=== PATIENT | male | born 1965 ===

== ENCOUNTER 2016-10-27 13:30 | Emergency (ER) | payer SELFPAY ==
[2016-10-27 13:46] VITALS: BP 154/99
--- NOTE | 2016-10-27 14:49 | UC ---
Skin Complaint HPI - HPI Summary HPI Summary: Itchy rash all over body starting about 2 weeks ago. First noticed on legs, especially behind R knee. Denies new medications, food, or supplements. No hx of skin allergies or sensitivities. Denies fever, cough, weight loss, or recent illness. - History of Current Complaint Chief Complaint: UCRash Time Seen by Provider: 10/27/16 14:32 Stated Complaint: RASH Hx Obtained From: Patient Onset/Duration: Gradual Onset, Lasting Weeks Timing: Constant Onset Severity: Mild Current Severity: Mild Location: Generalized Character: Pruritus Aggravating: Nothing Alleviating: Nothing Associated Signs & Symptoms: Positive: Rash - Allergy/Home Medications Allergies/Adverse Reactions: Allergies Allergy/AdvReac Type Severity Reaction Status Date / Time No Known Allergies Allergy Verified 12/20/14 10:37 Home Medications: Home Medications Multiple Vitamins W/ Minerals [Multivitamin Adult] 1 chw PO 10/27/16 [History] Review of Systems Constitutional: Negative Skin: Rash Eyes: Negative ENT: Negative Respiratory: Negative Cardiovascular: Negative Gastrointestinal: Negative Genitourinary: Negative Motor: Negative Neurovascular: Negative Musculoskeletal: Negative Neurological: Negative Psychological: Negative All Other Systems Reviewed And Are Negative: Yes PMH/Surg Hx/FS Hx/Imm Hx Previously Healthy: Yes - Pt does not see a PCP Endocrine History Of: Denies: Diabetes, Thyroid Disease Cardiovascular History Of: Denies: Cardiac Disorders, Hypertension Respiratory History Of: Denies: COPD, Asthma GI/ History Of: Denies: Ulcer - Surgical History Surgical History: Yes Surgery Procedure, Year, and Place: R ORIF femur. L ankle ORIF - Family History Known Family History: Positive: Unknown - pt not sure - Social History Lives: With Family Alcohol Use: None Substance Use Type: Marijuana Substance Use Comment - Amount & Last Used: today 10/27/16, states no Smoking Status (MU): Never Smoked Tobacco Physical Exam Triage Information Reviewed: Yes Appearance: Well-Appearing, No Pain Distress, Obese Vital Signs: Initial Vital Signs Temp 97.5 F 10/27/16 13:38 Pulse 82 10/27/16 13:38 Resp 18 10/27/16 13:38 BP 154/99 10/27/16 13:38 Pulse Ox 97 10/27/16 13:38 Vital Signs Reviewed: Yes Eye Exam: Normal Eyes: Positive: Conjunctiva Clear ENT Exam: Normal ENT: Positive: Normal ENT inspection, Hearing grossly normal, Pharynx normal, TMs normal Dental Exam: Normal Neck exam: Normal Neck: Positive: Supple, Nontender, No Lymphadenopathy Respiratory Exam: Normal Respiratory: Positive: Chest non-tender, Lungs clear, Normal breath sounds, No respiratory distress, No accessory muscle use Cardiovascular Exam: Normal Cardiovascular: Positive: RRR, No Murmur Musculoskeletal Exam: Normal Neurological Exam: Normal Psychological Exam: Normal Skin Exam: Other - small irreg red bumps on legs, arms, hands, abd, back. Skin folds spared, lots of open excoriations (especially on BLE). Course/Dx - Diagnoses Provider Diagnoses: dermatitis Discharge - Discharge Plan Condition: Stable Disposition: HOME Prescriptions: hydrOXYzine HCL TAB* [Atarax TAB*] 50 mg PO TID PRN #15 tab PRN Reason: Itching predniSONE TAB* [Deltasone TAB*] 40 mg PO DAILY #10 tab Patient Education Materials: Dermatitis (ED) Referrals: [facility] [Outside] Additional Instructions: As we discussed, I do not know what is making you itchy and rashy. If your symptoms resolve after this medication, no further treatment is needed. However , if your symptoms persist or worsen, please see a primary care provider or return here for a recheck.
== END 2016-10-27 14:47 | disposition home or self-care (01) ==
LOC: UCEAST 13:30
DX: L30.9 Dermatitis, unspecified (principal); F12.90 Cannabis use, unspecified, uncomplicated
CPT/HCPCS: 99212; G0463

== ENCOUNTER 2016-11-10 13:13 | Emergency (ER) | payer SELFPAY ==
[2016-11-10 13:34] VITALS: BP 146/85
--- NOTE | 2016-11-10 14:04 | UC ---
Skin Complaint HPI - HPI Summary HPI Summary: Patient was seen for a rash on 10/27 was given 5 days of prednisone, it started to improve but rebounded and is worse, it is on both lower legs hands and on his trunk. - History of Current Complaint Chief Complaint: UCRash Time Seen by Provider: 11/10/16 13:56 Stated Complaint: RASH - Allergy/Home Medications Allergies/Adverse Reactions: Allergies Allergy/AdvReac Type Severity Reaction Status Date / Time No Known Allergies Allergy Verified 12/20/14 10:37 Review of Systems Constitutional: Negative Skin: Rash, Other - redness Eyes: Negative ENT: Negative Respiratory: Negative Cardiovascular: Negative Gastrointestinal: Negative Genitourinary: Negative Motor: Negative Neurovascular: Negative Musculoskeletal: Negative Neurological: Negative Psychological: Negative All Other Systems Reviewed And Are Negative: Yes PMH/Surg Hx/FS Hx/Imm Hx Previously Healthy: Yes Endocrine History Of: Denies: Diabetes, Thyroid Disease Cardiovascular History Of: Denies: Cardiac Disorders, Hypertension Respiratory History Of: Denies: COPD, Asthma GI/ History Of: Denies: Ulcer - Surgical History Surgical History: Yes Surgery Procedure, Year, and Place: R ORIF femur. L ankle ORIF - Family History Known Family History: Positive: Unknown - pt not sure - Social History Alcohol Use: None Substance Use Type: Marijuana Substance Use Comment - Amount & Last Used: today 10/27/16, states no Smoking Status (MU): Never Smoked Tobacco Physical Exam Triage Information Reviewed: Yes Appearance: Well-Appearing, Well-Nourished, Pain Distress Vital Signs: Initial Vital Signs Temp 98.7 F 11/10/16 13:30 Pulse 110 11/10/16 13:30 Resp 18 11/10/16 13:30 BP 146/85 11/10/16 13:30 Pulse Ox 95 11/10/16 13:30 Vital Signs Reviewed: Yes Eye Exam: Normal Eyes: Positive: Conjunctiva Clear ENT Exam: Normal ENT: Positive: Normal ENT inspection, Hearing grossly normal, Pharynx normal, TMs normal Dental Exam: Normal Neck exam: Normal Neck: Positive: Supple, Nontender, No Lymphadenopathy Respiratory Exam: Normal Respiratory: Positive: Chest non-tender, Lungs clear, Normal breath sounds Cardiovascular Exam: Normal Cardiovascular: Positive: RRR, No Murmur, Pulses Normal Abdominal Exam: Normal Abdomen Description: Positive: Nontender, No Organomegaly, Soft Bowel Sounds: Positive: Present Musculoskeletal Exam: Normal Musculoskeletal: Positive: Strength Intact, ROM Intact, No Edema Neurological Exam: Normal Neurological: Positive: Alert, Muscle Tone Normal Psychological Exam: Normal Skin: Positive: rashes - hives noted on both legs and hands as well as on left trunk. multiple scabs on bilateral legs, erythem on right lower leg warm to touch and swelling noted. Course/Dx - Course Course Of Treatment: hx obtained, exam performed, medication prescribed. educated on antihistamine medications - Differential Diagnoses - Skin Complaint Differential Diagnoses: Allergic Reaction, Cellulitis, Contact Dermatitis, Local Allergic Reaction, Medication; Adverse Reaction, Other - petechiea - Diagnoses Provider Diagnoses: cellulitis of the right lower leg. urticaria. PVD Discharge - Discharge Plan Condition: Stable Disposition: HOME Prescriptions: Cephalexin CAP* [Keflex CAP*] 500 mg PO BID #14 cap predniSONE TAB* [Deltasone TAB*] 20 mg PO DAILY #18 tab Patient Education Materials: Cellulitis (ED) Referrals: No Primary Care Phys,NOPCP [Primary Care Provider] - Yuly Roman [Medical Doctor] - Ravinder LAM,Luis Izaguirre [Medical Doctor] - Additional Instructions: Take the medication as prescribed. Follow up with the health actuary if symptoms persist.
== END 2016-11-10 14:47 | disposition home or self-care (01) ==
LOC: UCEAST 13:13
DX: L03.115 Cellulitis of right lower limb (principal); L50.9 Urticaria, unspecified; I73.9 Peripheral vascular disease, unspecified
CPT/HCPCS: 99212; G0463

== ENCOUNTER 2016-12-23 12:49 | Emergency (ER) | payer SELFPAY ==
[2016-12-23 13:22] VITALS: BP 132/96
--- NOTE | 2016-12-23 14:27 | UC ---
Lower Extremity/Ankle HPI - HPI Summary HPI Summary: Right leg skin itching and patches of scabs. THs has been present for 6mo or so. Antibiotics may have helped in the past. He has had some swelling of thr gith derek for about a month and this resolves with laying flat. no fever. non diabetic. no chills. 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 no pets and no personal contact with skin rashes. - Allergies/Home Medications Allergies/Adverse Reactions: Allergies Allergy/AdvReac Type Severity Reaction Status Date / Time No Known Allergies Allergy Verified 12/23/16 13:22 Home Medications: Home Medications Ibuprofen TAB* [Motrin TAB* 600 MG] 600 mg PO Q6H PRN 12/23/16 [History Confirmed 12/23/16] PMH/Surg Hx/FS Hx/Imm Hx Endocrine History Of: Denies: Diabetes, Thyroid Disease Cardiovascular History Of: Denies: Cardiac Disorders, Hypertension Respiratory History Of: Denies: COPD, Asthma GI/ History Of: Denies: Ulcer - Surgical History Surgical History: Yes Surgery Procedure, Year, and Place: R ORIF femur. L ankle ORIF - Family History Known Family History: Positive: Unknown - pt not sure - Social History Alcohol Use: None Substance Use Type: Marijuana Substance Use Comment - Amount & Last Used: mid October 2016 Smoking Status (MU): Former Smoker Review of Systems All Other Systems Reviewed And Are Negative: Yes Physical Exam Triage Information Reviewed: Yes Appearance: Well-Appearing, No Pain Distress, Well-Nourished Vital Signs: Initial Vital Signs Temp 97.8 F 12/23/16 13:11 Pulse 95 12/23/16 13:11 Resp 18 12/23/16 13:11 BP 132/96 12/23/16 13:11 Pulse Ox 99 12/23/16 13:11 Vital Signs Reviewed: Yes Eye Exam: Normal ENT Exam: Normal Neck exam: Normal Respiratory Exam: Normal Cardiovascular Exam: Normal, Other - right lower pulse intact. Abdominal Exam: Normal Musculoskeletal Exam: Other - calf swelling without obvious tenderness. Unilateral. neg homans. Neurological Exam: Normal Psychological Exam: Normal Skin Exam: Other - right calf patches of excoriations and skin discoloration. No induration and no streaking. Skin is not hot and is generally salmon colored. Lower Extremity Course/Dx - Course Course Of Treatment: Sign ultrasound out to Dr. Osborne. This is not c/w obvious cellulitis. I recommend skin bx and derm follow up with a course of antibiotics and steroid ointment. He was made aware of this. The swelling is also atypical for DVT. u/s to rule this out. this is more c/w with venous stasis inflammation. - Differential Dx/Diagnosis Differential Diagnosis/HQI/PQRI: Arthritis, Cellulitis, Compartment Syndrome, Contusion, DVT, Foreign Body, Infection, Osteomyelitis, Phlebitis, Septic Arthritis, Subungual Hematoma, Strain, Tendonitis, Tenosynovitis Provider Diagnoses: rash. swelling. venous stasis Discharge - Discharge Plan Condition: Stable Disposition: HOME Prescriptions: Amoxicillin/Clavulanate TAB* [Augmentin TAB 875*] 875 mg PO BID #20 tab Triamcinolone 0.5% OINT * 1 applic TOPICAL BID #1 tube Patient Education Materials: Acute Rash (ED) Referrals: No Primary Care Phys,NOPCP [Primary Care Provider] - Marquez Beach MD [Medical Doctor] - 1 Week
== END 2016-12-23 16:00 | disposition home or self-care (01) ==
LOC: UCCORT 12:49
DX: R21 Rash and other nonspecific skin eruption (principal); R60.0 Localized edema; I87.8 Other specified disorders of veins; Z87.891 Personal history of nicotine dependence
CPT/HCPCS: 99212; G0463